=== PATIENT | female | born 1975 | race Two or more races ===

== ENCOUNTER 2019-12-26 09:04 | Outpatient (CLI) | payer OTHER | END 2019-12-26 11:44 | disposition home or self-care (01) | LOC: MAMO-SONO 09:04 | PROVIDERS: ATTEND Internal Medicine Endocrinology, Diabetes & Metabolism | DX: Z12.31 Encounter for screening mammogram for malignant neoplasm of breast (principal); Z87.898 Personal history of other specified conditions; E04.1 Nontoxic single thyroid nodule; N64.89 Other specified disorders of breast; N61.1 Abscess of the breast and nipple ==

== ENCOUNTER 2021-01-30 08:04 | Outpatient (CLI) | payer OTHER | END 2021-01-30 08:22 | disposition home or self-care (01) | LOC: MAMO-SONO 08:04 | PROVIDERS: ATTEND Obstetrics & Gynecology | DX: N64.4 Mastodynia (principal); Z87.898 Personal history of other specified conditions; Z12.31 Encounter for screening mammogram for malignant neoplasm of breast ==

== ENCOUNTER 2021-04-03 15:16 | Outpatient (CLI) | payer OTHER | END 2021-04-03 15:24 | disposition home or self-care (01) | LOC: RAD 15:16 | PROVIDERS: ATTEND Pathology Anatomic Pathology & Clinical Pathology | DX: I10 Essential (primary) hypertension (principal); R76.11 Nonspecific reaction to tuberculin skin test without active tuberculosis; Z11.1 Encounter for screening for respiratory tuberculosis ==

== ENCOUNTER 2022-03-24 08:11 | Outpatient (CLI) | payer OTHER | END 2022-03-24 08:32 | disposition home or self-care (01) | LOC: MAMO-SONO 08:11 | PROVIDERS: ATTEND Obstetrics & Gynecology | DX: Z12.31 Encounter for screening mammogram for malignant neoplasm of breast (principal); N64.4 Mastodynia ==

== ENCOUNTER 2022-12-14 15:17 | Outpatient (CLI) | payer OTHER | END 2022-12-14 15:38 | disposition home or self-care (01) | LOC: RAD 15:17 | DX: M79.621 Pain in right upper arm (principal) ==

== ENCOUNTER 2024-07-05 08:54 | Outpatient (CLI) | payer OTHER | END 2024-07-05 09:04 | disposition home or self-care (01) | LOC: MAMO-SONO 08:54 | PROVIDERS: ATTEND Obstetrics & Gynecology | DX: N64.4 Mastodynia (principal) ==

== ENCOUNTER 2025-03-14 12:15 | Outpatient (CLI) | payer OTHER | END 2025-03-14 12:17 | disposition home or self-care (01) | LOC: SONOGRAMA 12:15 | PROVIDERS: ATTEND Obstetrics & Gynecology | DX: N83.201 Unspecified ovarian cyst, right side (principal) ==

== ENCOUNTER 2025-05-19 18:47 | Emergency (ER) | payer OTHER ==
[~2025-05-19] VITALS: Ht 157.5 cm; Wt 68.9 kg
[2025-05-19] MEDS ORDERED: ACETAMINOPHEN 500 MG GEL..CAP PO STA (19:33)
[2025-05-19 20:46] LABS: BASO % 0.4 % (0.1-1.2); EOS # 0.28 (0.04-0.54); EOS % 3.0 % (0.7-7.0); LYMPH # 3.47 (1.18-3.74); LYMPH % 37.5 % (19.3-53.1); MEAN PLATELET VOLUME 9.30 fl (9.4-12.4); MONO # 0.74 (0.24-0.82); MONO % 8.0 % (4.7-12.5); NEUT # 4.70 (1.56-6.13); NEUT % 50.8 % (34.0-71.1); RED CELL DISTRIBUTION WIDTH 13.8 % (11.6-14.4)
[2025-05-19 21:32] LABS: ALT/SGPT 21 U/L (12-78); AST/SGOT 15 U/L (15-37); BILIRUBIN TOTAL 0.31 mg/dL (0.3-1.2); BUN CREA RATIO 17 (7.0-25.0); CKMB < 1.0 NG/ML (0.5-3.6); CREATININE SERUM 0.63 mg/dL (0.55-1.02); GFR 100.02; GLOBULINA 3.1 G/DL (2.4-3.5); GLUCOSE FASTING 122 mg/dL (65-100); OSMOLALITY SERUM 288 MOSM/KG (275-295)
[2025-05-19] MEDS ORDERED: KETOROLAC TROMETHAMINE 15 MG VIAL IM STA (22:01)
[2025-05-19] MEDS ORDERED: BUTALB-ACETAMI1 EAC2 PO ×2 (22:08→22:09)
[2025-05-19] MEDS ORDERED: BUTALB-ACETAMI1 EAC2 (22:08)
[2025-05-19] MEDS ORDERED: COZAAR50 MG PO (22:09)
== END 2025-05-19 22:43 | disposition home or self-care (01) ==
LOC: ER 18:47
PROVIDERS: General Practice
DX: R51.9 Headache, unspecified (principal); I10 Essential (primary) hypertension